=== PATIENT | female | born 1995 | race Caucasian/White ===

== ENCOUNTER → 2022-03-31 | Outpatient (CLI) | payer BC | END | disposition home or self-care (01) | LOC: PLD 08:24 → LAB SHORT 08:24 | DX: D23.62 Other benign neoplasm of skin of left upper limb, including shoulder (principal) | CPT/HCPCS: 88305 ==

== ENCOUNTER → 2025-01-04 | Outpatient (CLI) | payer OTHER | END | disposition home or self-care (01) | LOC: LAB 16:30 → LAB SHORT 16:30 | DX: N30.91 Cystitis, unspecified with hematuria (principal) | CPT/HCPCS: 87077; 87086; 87186 ==

== ENCOUNTER → 2025-01-10 | Outpatient (CLI) | payer OTHER | LOC: LAB 08:53 → LAB SHORT 08:53 | DX: N39.0 Urinary tract infection, site not specified (principal) | CPT/HCPCS: 87077; 87086; 87186 ==

== ENCOUNTER → 2025-04-28 | Outpatient (CLI) | payer OTHER | END | disposition home or self-care (01) | LOC: LAB SHORT 08:07 → LAB 08:07 | DX: R87.612 Low grade squamous intraepithelial lesion on cytologic smear of cervix (LGSIL) (principal) | CPT/HCPCS: 88305; 88341; 88342 ==

== ENCOUNTER 2025-08-11 07:42 | Inpatient (IN) | payer OTHER ==
[~2025-08-11] VITALS: Ht 172.7 cm; Wt 107.8 kg
[2025-08-11] MEDS ORDERED: Ondansetron HCl 2 MG / ML 2ML Vial IV ONE ×2 (08:05→10:15)
[2025-08-11 08:25] LABS: BASOPHILS ABSOLUTE AUTO 0.02 K/mm3 (0.00-0.23); BASOPHILS PERCENT AUTO 0 % (0-2); EOSINOPHILS ABSOLUTE AUTO 0.00 K/mm3 (0.00-0.68); EOSINOPHILS PERCENT AUTO 0 % (0-6); Hematocrit 41.0 % (33.0-51.0); Hemoglobin 13.9 g/dL (11.5-16.0); IMMATURE GRAN ABSOLUTE AUTO 0.04 K/mm3 (0.00-0.10); IMMATURE GRAN PERCENT AUTO 0 % (0-1); LYMPHOCYTES ABSOLUTE AUTO 0.30 K/mm3 (0.84-5.20); LYMPHOCYTES PERCENT AUTO 2 % (21-46); MONOCYTES ABSOLUTE AUTO 0.72 K/mm3 (0.16-1.47); MONOCYTES PERCENT AUTO 5 % (4-13); Mean Corpuscular HGB Conc 33.9 g/dL (31.5-36.5); Mean Corpuscular Volume 89 fL (80-100); NEUTROPHILS ABSOLUTE AUTO 14.67 K/mm3 (1.96-9.15); NEUTROPHILS PERCENT AUTO 93 % (41-73); NRBC ABSOLUTE 0.00 K/mm3 (0.00-0.02); NRBC Auto 0.0 /100 WBC (0.0-0.2); Platelet Count 234 K/mm3 (150-400); RDW Coefficient Variation 13.0 % (11.7-14.2); RDW Standard Deviation 42.3 fL (35.1-46.3)
[2025-08-11 08:50] LABS: Alanine Aminotransfer (ALT/SGP 24.0 U/L (12-78); Albumin, Blood 4.0 g/dL (3.4-5.0); Albumin/Globulin Ratio 1.1 (0.8-1.8); Anion Gap 8.0 mmol/L (3-11); Aspartate Aminotrans (AST/SGOT 19.0 U/L (12-37); Bilirubin, Total 0.7 mg/dL (0.1-1.0); Blood Urea Nitrogen 15.0 mg/dL (8-24); CO2, Blood 26.0 mmol/L (21-32); Calcium, Blood 8.9 mg/dL (8.5-10.1); Chloride, Blood 107.0 mmol/L (98-108); Creatinine, Blood 1.01 mg/dL (0.40-1.00); Globulin, Blood 3.7 g/dL (2.2-4.0); Glucose, Blood 128.0 mg/dL (70-99); Potassium, Blood 4.1 mmol/L (3.5-5.5); Sodium, Blood 137.0 mmol/L (136-145); Total Protein, Blood 7.7 g/dL (6.4-8.2)
[2025-08-11 10:30] LABS: Source, Urine Clean Catch
[2025-08-11] MEDS ORDERED: Ketorolac Tromethamine 30mg Vial IV ONE (10:30)
[2025-08-11] MEDS ORDERED: HYDROmorphone HCl/Pf 1MG SYR IV ONE ×2 (10:30→10:50)
[2025-08-11 10:38] LABS: Bilirubin, Urine Neg (Neg); Color, Urine Yellow (P-Yellow); Glucose Qualitative, Urine Neg (Neg); Ketones, Urine 1+ (Neg); Leukocyte Esterase, Urine 3+ (Neg); Protein, Urine 1+ (Neg); Specific Gravity, Urine 1.010 (1.003-1.022); Urobilinogen, Urine NORM (Normal)
[2025-08-11 10:49] LABS: White Blood Cells, Urine 25-50 /hpf (0-5)
[2025-08-11] MEDS ORDERED: CefTRIAXone Sodium 1,000 MG in NS 50 ML IV ONE (10:55)
[2025-08-11] MEDS ORDERED: NS 1,000 ML IV SCH ×2 (11:50→12:35)
[2025-08-11] MEDS ORDERED: FLU VACC TS2025-26(6MOS UP)/PF 45 MCG/0.5 ML SYRINGE IM SCH (12:30)
[2025-08-11] MEDS ORDERED: HYDROmorphone HCl/Pf 1MG SYR IV PRN (12:35)
[2025-08-11] MEDS ORDERED: Ondansetron HCl 2 MG / ML 2ML Vial IV PRN (12:35)
[2025-08-11] MEDS ORDERED: Ketorolac Tromethamine 15mg Vial IV PRN ×2 (12:40→13:20)
[2025-08-11 15:34] VITALS: BP 114/70
[2025-08-11 15:40] VITALS: BP 114/70
--- NOTE | 2025-08-11 18:40 | NUR ---
ADMISSION AND SHIFT SUMMARY PATIENT ADMITTED TO SURGICAL FLOOR. PATIENT ALERT AND INTERACTIVE. PATIENT ABLE TO AMBULATE INDEPENDENTLY. PATIENT HAS BRUISING OF R OUTER ANKLE. PATIENT STATES THAT SHE FELL OFF OF HER LOG LOAD ON HER LOG TRUCK RECENTLY AND "SPRAINED MY ANKLE". PATIENT STATES R FLANK PAIN STARTED THIS MORNING THEN BECAME NAUSEATED AND VOMITTED PRIOR TO COMING TO THE ER. PATIENT HAD 4MM STONE PER IMAGING AND POSITIVE FOR UTI. PATIENT EDUCATED ON NEED TO STRAIN URINE AND MEDICATED FOR PAIN. MOTHER AT BEDSIDE.
[2025-08-11 19:08] VITALS: BP 114/51
[2025-08-12] VITALS (13 sets, daily range): BP systolic 108–133; BP diastolic 58–79
[2025-08-12 04:40] LABS: BASOPHILS ABSOLUTE AUTO 0.06 K/mm3 (0.00-0.23); BASOPHILS PERCENT AUTO 0 % (0-2); EOSINOPHILS ABSOLUTE AUTO 0.21 K/mm3 (0.00-0.68); EOSINOPHILS PERCENT AUTO 1 % (0-6); Hematocrit 33.7 % (33.0-51.0); Hemoglobin 11.4 g/dL (11.5-16.0); IMMATURE GRAN ABSOLUTE AUTO 0.11 K/mm3 (0.00-0.10); IMMATURE GRAN PERCENT AUTO 1 % (0-1); LYMPHOCYTES ABSOLUTE AUTO 1.41 K/mm3 (0.84-5.20); LYMPHOCYTES PERCENT AUTO 7 % (21-46); MONOCYTES ABSOLUTE AUTO 1.29 K/mm3 (0.16-1.47); MONOCYTES PERCENT AUTO 7 % (4-13); Mean Corpuscular HGB Conc 33.8 g/dL (31.5-36.5); Mean Corpuscular Volume 89 fL (80-100); NEUTROPHILS ABSOLUTE AUTO 16.22 K/mm3 (1.96-9.15); NEUTROPHILS PERCENT AUTO 84 % (41-73); NRBC ABSOLUTE 0.00 K/mm3 (0.00-0.02); NRBC Auto 0.0 /100 WBC (0.0-0.2); Platelet Count 167 K/mm3 (150-400); RDW Coefficient Variation 13.4 % (11.7-14.2); RDW Standard Deviation 43.7 fL (35.1-46.3)
[2025-08-12 05:02] LABS: Anion Gap 7.0 mmol/L (3-11); Blood Urea Nitrogen 19.0 mg/dL (8-24); CO2, Blood 28.0 mmol/L (21-32); Calcium, Blood 8.2 mg/dL (8.5-10.1); Chloride, Blood 103.0 mmol/L (98-108); Creatinine, Blood 1.33 mg/dL (0.40-1.00); Glucose, Blood 85.0 mg/dL (70-99); Potassium, Blood 3.9 mmol/L (3.5-5.5); Sodium, Blood 134.0 mmol/L (136-145)
--- NOTE | 2025-08-12 06:18 | NUR ---
SHIFT SUMMARY PT C/O RLQ/ FLANK PAIN INTERMITTENTLY DURING THE NIGHT. MEDICATED PER EMAR WITH STATED PAIN CONTROL. PT AFEBRILE DURING THE NIGHT. 1L LR COMPLETED AND PT SL'D. URINE BEING STRAINED WITHOUT EVIDENCE OF PASSED STONE. PT SLEPT INTERMITTENTLY DURING THE NIGHT.
--- NOTE | 2025-08-12 07:33 | NUR ---
UROLOGY ROUND NOTE: DR. JONES (UROLOGY) ROUND ON PATIENT AT 0730, DISCUSSED c PLAN OF CARE OF POSSIBLE PROCEDURE. PATIENT AGREED c UROLOGY PLAN, VERBALIZED UNDERSTANDING. PATIENT PLACE ON NPO NOW FOR POSSIBLE PROCEDURE SOMETIMES TODAY.
[2025-08-12] MEDS ORDERED: Midazolam HCl 1MG / ML 2ML Vial ONE (08:40)
[2025-08-12] MEDS ORDERED: FentaNYL Citrate 50 MCG/ML 2 ML Injection ONE (08:40)
[2025-08-12] MEDS ORDERED: CefTRIAXone Sodium 2,000 MG in NS 100 ML IV SCH (09:00)
[2025-08-12] MEDS ORDERED: CefTRIAXone Sodium 1,000 MG in NS 100 ML IV SCH (09:00)
--- NOTE | 2025-08-12 09:26 | NUR ---
OUT OF ROOM NOTE: PATIENT LEFT THE ROOM VIA BED AT 0921 TO PREOP.
[2025-08-12] MEDS ORDERED: SuccINYLCHOLINE Chloride 100 MG/5 ML 5MLSYR ONE (09:30)
[2025-08-12] MEDS ORDERED: Rocuronium Bromide 10 MG/ML 5ML Injection IV ONE (09:30)
[2025-08-12] MEDS ORDERED: HYDROmorphone HCl/Pf 1MG SYR IV PRN ×2 (09:55→10:00)
[2025-08-12] MEDS ORDERED: FentaNYL Citrate 50 MCG/ML 2 ML Injection IV PRN ×2 (10:00)
[2025-08-12] MEDS ORDERED: Ondansetron HCl 2 MG / ML 2ML Vial IV PRN (10:00)
[2025-08-12] MEDS ORDERED: Ondansetron HCl 2 MG / ML 2ML Vial ONE (10:03)
--- NOTE | 2025-08-12 10:47 | NUR ---
BACK IN ROOM NOTE: PATIENT BACK IN ROOM VIA JEANNETTERSKYLAR AT 1037 FROM PACU FOR POST-OP URETHRA STENTS PLACEMENT DONE BY DR. JONES (UROLOGY). PATIENT TRANSFERRED TO BED c SBA. POST-OP VITALS TAKEN. PATIENT DENIES GENERALIZED PAIN, CP/PRESSURE, SOB, N/V AND DIZZINESS. PATIENT CONNECTED BACK TO LR AT 150 MLS/HR. PATIENT A/OX4, PLEASANT AND COOPERATIVE c CARE, CALLS APPROPRIATELY AND MAKE NEEDS KNOWN. WCTM T/O SHIFT. BED IN LOWEST POSITION. CALL LIGHT IN REACH.
--- NOTE | 2025-08-12 17:45 | NUR ---
SHIFT SUMMARY: PATIENT HAD R URETHRAL STENTS PLACED TODAY. POST-OP VITALS COMPLETED. PATIENT HAD A LOW GRADE TEMP OF 99.5, REPORTS BODY ACHES AND PAIN TO R SIDE FLANK. PATIENT MEDICATED c PRN TYLENOL AND TORADOL PER EMAR c GOOD EFFECT. PATIENT URINE BEING STRAINED THIS SHIFT WITHOUT EVIDENCE OF PASSED STONE. PATIENT HAS GOOD APPETITE, CONTINENT OF BLADDER AND AMBULATES TO BATHROOM INDEPENDENTLY. PATIENT HAS HAD NO COMPLAINTS OR DENIES NEW CONCERN THIS SHIFT. PATIENT A/OX4, PLEASANT AND COOPERATIVE c CARE, CALLS APPROPRIATELY AND MAKE NEEDS KNOWN. BED IN LOWEST POSITION. CALL LIGHT IN REACH.
[2025-08-13 03:44] VITALS: BP 129/72
--- NOTE | 2025-08-13 03:56 | NUR ---
NOC SUMMARY- PT HAS RESTED IN NO DISTRESS. PT ONLY COMPLAINT HAS BEEN A HEADACHE AND WAS RELIEVED WITH TYLENOL. PT TOLERATING PO AND VOIDING. NO NEW ISSUES. PT CALL LIGHT IN REACH.
[2025-08-13 04:30] LABS: BASOPHILS ABSOLUTE AUTO 0.02 K/mm3 (0.00-0.23); BASOPHILS PERCENT AUTO 0 % (0-2); EOSINOPHILS ABSOLUTE AUTO 0.09 K/mm3 (0.00-0.68); EOSINOPHILS PERCENT AUTO 1 % (0-6); Hematocrit 32.4 % (33.0-51.0); Hemoglobin 10.9 g/dL (11.5-16.0); IMMATURE GRAN ABSOLUTE AUTO 0.04 K/mm3 (0.00-0.10); IMMATURE GRAN PERCENT AUTO 0 % (0-1); LYMPHOCYTES ABSOLUTE AUTO 1.18 K/mm3 (0.84-5.20); LYMPHOCYTES PERCENT AUTO 11 % (21-46); MONOCYTES ABSOLUTE AUTO 0.91 K/mm3 (0.16-1.47); MONOCYTES PERCENT AUTO 9 % (4-13); Mean Corpuscular HGB Conc 33.6 g/dL (31.5-36.5); Mean Corpuscular Volume 89 fL (80-100); NEUTROPHILS ABSOLUTE AUTO 8.41 K/mm3 (1.96-9.15); NEUTROPHILS PERCENT AUTO 79 % (41-73); NRBC ABSOLUTE 0.00 K/mm3 (0.00-0.02); NRBC Auto 0.0 /100 WBC (0.0-0.2); Platelet Count 160 K/mm3 (150-400); RDW Coefficient Variation 13.2 % (11.7-14.2); RDW Standard Deviation 43.1 fL (35.1-46.3)
[2025-08-13 05:04] LABS: Alanine Aminotransfer (ALT/SGP 17.0 U/L (12-78); Albumin, Blood 2.6 g/dL (3.4-5.0); Albumin/Globulin Ratio 0.8 (0.8-1.8); Anion Gap 6.0 mmol/L (3-11); Aspartate Aminotrans (AST/SGOT 17.0 U/L (12-37); Bilirubin, Total 0.3 mg/dL (0.1-1.0); Blood Urea Nitrogen 17.0 mg/dL (8-24); CO2, Blood 28.0 mmol/L (21-32); Calcium, Blood 8.5 mg/dL (8.5-10.1); Chloride, Blood 107.0 mmol/L (98-108); Creatinine, Blood 0.99 mg/dL (0.40-1.00); Globulin, Blood 3.3 g/dL (2.2-4.0); Glucose, Blood 81.0 mg/dL (70-99); Potassium, Blood 4.0 mmol/L (3.5-5.5); Sodium, Blood 137.0 mmol/L (136-145); Total Protein, Blood 5.9 g/dL (6.4-8.2)
[2025-08-13] MEDS ORDERED: OxyCODONE 10/Acetamin 325 TABLET PO PRN (07:09)
[2025-08-13 07:22] VITALS: BP 143/82
[2025-08-13] MEDS ORDERED: NS 250 ML IV PRN (08:30)
[2025-08-13] MEDS ORDERED: CEFP200 PO (08:37)
[2025-08-13] MEDS ORDERED: KETO10 PO (08:39)
[2025-08-13] MEDS ORDERED: CIPR500 PO (11:29)
--- NOTE | 2025-08-13 16:52 | NUR ---
SHIFT SUMMARY AND DISCHARGE PATIENT ALERT AND INDEPENDENT IN ROOM. PATIENT HAS SOME DISCOMFORT OF R LOWER QUADRANT AND FLANK PAIN. PATIENT CONTINUES TO HAVE PATRICIA URINE. CONTINUE TO ENCOURAGE FLUIDS. DISCHARGE INSTRUCTIONS REVIEWED WITH PATIENT AND FATHER. IV DC'D. ROOM CHECK DONE BEFORE DEPARTURE. BELONGINGS SENT HOME WITH PATIENT. PATIENT REQUESTING TO AMBULATE OUT. FATHER ESCORTED HER OUT. RX FAXED TO [facility]
== END 2025-08-13 11:46 | disposition home or self-care (01) | DRG 854 ==
LOC: ER 07:42 → SURS 07:43
PROVIDERS: Emergency Medicine; Urology; ADMIT Internal Medicine
PROC: 3E03329 Introduction of Other Anti-infective into Peripheral Vein, Percutaneous Approach (ICD-10-PCS; 2025-08-11)
PROC: BT1DZZZ Fluoroscopy of Right Kidney, Ureter and Bladder (ICD-10-PCS; 2025-08-12)
PROC: 0T768DZ Dilation of Right Ureter with Intraluminal Device, Via Natural or Artificial Opening Endoscopic (ICD-10-PCS; principal; 2025-08-12 09:00)
DX: A41.51 Sepsis due to Escherichia coli [E. coli] (principal); N13.6 Pyonephrosis; N17.9 Acute kidney failure, unspecified; Z16.24 Resistance to multiple antibiotics; Z87.440 Personal history of urinary (tract) infections
CPT/HCPCS: 36415; 74177; 76705; 80048; 80053; 81001; 83605; 83690; 85025; 87077; 87086; 87186; 96361; 96365-59; 96375; 96376; 99285-25; A9270; G0378; J0330; J0696; J1171; J1885; J2250; J2405; J2704; J3010; J7120; Q9967

== ENCOUNTER 2025-08-22 11:08 | Day surgery (SDC) | payer OTHER ==
[~2025-08-22] VITALS: Ht 172.7 cm; Wt 106.9 kg
[~2025-08-22 11:08] MED LIST: CEFP200 PO; CIPR500 PO; KETO10 PO; Lidocaine 2% Jelly Uro-Jet ONE
[2025-08-22] MEDS ORDERED: Ciprofloxacin 400MG/D5 200ML 200 ML IV ONE (11:28)
[2025-08-22] MEDS ORDERED: ACET500 (11:37)
[2025-08-22] MEDS ORDERED: IBUP600 (11:38)
[2025-08-22] MEDS ORDERED: Lidocaine 2% Jelly Uro-Jet ONE (12:59)
[2025-08-22] MEDS ORDERED: FentaNYL Citrate 50 MCG/ML 2 ML Injection ONE (13:06)
[2025-08-22] MEDS ORDERED: Dexamethasone Sod Phos 10 MG/ML 1ML VIAL ONE (13:07)
[2025-08-22] MEDS ORDERED: Glycopyrrolate 0.2 MG/ML 5ML VIAL ONE (13:28)
--- NOTE | 2025-08-22 13:31 | NUR ---
08/22/25 1331 Oma Tamayo ISOVUE 300 100ML MIXED 1:1 ON FIELD WITH NACL
[2025-08-22] MEDS ORDERED: CeFAZolin Sodium 1000 mg Vial ONE (13:45)
[2025-08-22 14:14] VITALS: BP 161/88
--- NOTE | 2025-08-22 15:10 | NUR ---
08/22/25 1510 RenteriaMatthew velasquez PT DENIES PAIN AND NAUSEA AT THIS TIME. PT AGREEABLE TO D/C HOME WITH HER UNCLE FLAQUITO.
== END 2025-08-22 15:07 | disposition home or self-care (01) ==
LOC: ORSCSDS 11:08
PROVIDERS: Urology
PROC: 0TC68ZZ Extirpation of Matter from Right Ureter, Via Natural or Artificial Opening Endoscopic (ICD-10-PCS; principal; 2025-08-22 12:30)
DX: N13.2 Hydronephrosis with renal and ureteral calculous obstruction (principal); N39.0 Urinary tract infection, site not specified; E66.01 Morbid (severe) obesity due to excess calories; Z68.35 Body mass index [BMI] 35.0-35.9, adult
CPT/HCPCS: C1758; C1769; C2617; J0690; J0744; J1100; J2704; J3010; J7120